=== PATIENT | male | born 1985 | race Two or more races ===

== ENCOUNTER 2018-10-28 20:38 | Emergency (ER) | payer OTHER ==
[2018-10-29 01:23] LABS: ADD MAN DIFF? NO
[2018-10-29 01:24] LABS: WHITE BLOOD COUNT 13.7 10^3/ul (4.8-10.8)
[2018-10-29 01:24] LABS: BASOPHIL # 0.1 10^3/ul (0.0-0.1); BASOPHILS % 0.4 % (0.0-2.0); EOSINOPHILS # 0.2 10^3/ul (0.0-0.5); EOSINOPHILS % 1.3 % (0.0-7.0); HEMATOCRIT 39.4 % (42.0-52.0); HEMOGLOBIN 13.1 g/dl (14.0-18.0); LYMPHOCYTES # 2.8 10^3/ul (0.8-2.9); LYMPHOCYTES % 20.3 % (15.0-51.0); MEAN CORPUSCULAR HGB CONC 33.2 g/dl (32.0-37.0); MEAN CORPUSCULAR VOLUME 96.1 fl (82.0-101.0); MEAN PLATELET VOLUME 10.2 fl (7.4-10.4); MONOCYTE # 1.1 10^3/ul (0.3-0.9); NEUTROPHIL # 9.5 10^3/ul (1.6-7.5); NEUTROPHILS % 69.6 % (39.0-77.0); PLATELET COUNT 217 10^3/UL (140-415); RED CELL DISTRIBUTION WIDTH 12.8 % (11.5-14.5)
[2018-10-29] MEDS ORDERED: LIDOCAINE 1%/EPI (MDV) 50 ML INJ INJ (01:30)
[2018-10-29] MEDS: ONDANSETRON 4 MG INJ IV (01:31)
[2018-10-29] MEDS: HYDROmorphONE 1 MG/ML SYG IV (01:32)
[2018-10-29] MEDS: PIPER-TAZO 3.375 GM IV (PMX) 100 ML IVPB (01:32)
[2018-10-29] MEDS: DIPHTH/TET/ACEL PERTUSS (ADULT) 0.5 ML VIAL IM* (01:33)
[2018-10-29 01:47] LABS: ANION GAP 12 (5-13); BLOOD UREA NITROGEN 12 mg/dl (7-20); CARBON DIOXIDE 25 mmol/L (21-31); CHLORIDE 99 mmol/L (97-110); CREATININE 0.71 mg/dl (0.61-1.24); Estimated GFR > 60 mL/min (>60); GLUCOSE 136 mg/dl (70-220); POTASSIUM 3.9 mmol/L (3.5-5.1); SODIUM 136 mmol/L (135-144)
[2018-10-29] MEDS: LIDOCAINE 1%/EPI 30 ML INJ INJ (02:19)
[2018-10-29] MEDS: VANCOMYCIN 1 GM (PMX) 250 ML IVPB (02:23)
[2018-10-29] MEDS: HYDROCODONE/APAP (10/325) TAB PO (02:29)
[2018-10-29] MEDS: LORAZEPAM 2 MG INJ IV (02:37)
== END 2018-10-29 05:01 | disposition home or self-care (01) ==
LOC: E/R 20:38
DX: L02.414 Cutaneous abscess of left upper limb (principal); L03.114 Cellulitis of left upper limb; F17.210 Nicotine dependence, cigarettes, uncomplicated; Z23 Encounter for immunization
CPT/HCPCS: 10060; 36415; 80048; 85025; 90471; 90715; 96374; 96375; 99284-25